=== PATIENT | male | born 1950 | race Hispanic/Latino ===

== ENCOUNTER 2022-02-09 20:33 | Inpatient (IN) | payer MEDICAID, OTHER ==
[~2022-02-09] VITALS: Ht 157.5 cm; Wt 73.4 kg
[~2022-02-09 20:33] MED LIST: AMLO5TAB4 PO; HYDR12.54 PO; LEVO500T90 PO
[2022-02-09] MEDS ORDERED: KETOROLAC 30MG VIAL (30MG/ML) IVP ONE (21:00)
[2022-02-09] MEDS ORDERED: ONDANSETRON 4MG INJ IVP ONE (21:00)
[2022-02-09] MEDS ORDERED: LISI10TA24 PO (21:01)
[2022-02-09] MEDS ORDERED: ENZA40TA PO (21:02)
[2022-02-09] MEDS ORDERED: SALM1CAP PO (21:03)
[2022-02-09 21:09] LABS: BASOPHILS % (AUTO) 0.6 % (0.0-5.0); EOSINOPHILS % (AUTO) 0.3 % (0.0-8.0); HEMATOCRIT 33.9 % (42-54); LYMPHOCYTES % (AUTO) 18.9 % (21.0-51.0); MEAN CORPUSCULAR HEMOGLOBIN 27.1 pg (27.0-33.0); MEAN CORPUSCULAR VOLUME 81.9 fL (79-99); MONOCYTES % (AUTO) 10.9 % (3.0-13.0); NEUTROPHILS % (AUTO) 68.9 % (40.0-77.0); PLATELET COUNT (AUTO) 149 K/uL (130-400); RED BLOOD CELL COUNT(AUTO) 4.14 MIL/uL (4.50-6.20); RED CELL DISTRIBUTION WIDTH 17.2 % (11.0-15.5); WHITE BLOOD COUNT (AUTO) 6.8 K/uL (4.8-10.8)
[2022-02-09 21:17] LABS: CREATININE 1.4 mg/dL (0.5-1.5); POTASSIUM 4.2 mmol/L (3.5-5.1)
[2022-02-09 21:21] LABS: ALBUMIN 3.7 g/dL (3.5-5.0); BILIRUBIN,TOTAL 0.6 mg/dL (0.2-1.0)
[2022-02-09 21:32] LABS: APPEARANCE,URINE Cloudy (CLEAR); BILIRUBIN,URINE Negative (NEGATIVE); COLOR,URINE Yellow (YELLOW); GLUCOSE, URINE (UA) Negative (NEGATIVE); KETONES,URINE Negative (NEGATIVE); LEUKOCYTE ESTERASE ,URINE Large (NEGATIVE); NITRATE,URINE Negative (NEGATIVE); OCCULT BLOOD,URINE Trace (NEGATIVE); PH,URINE 8.5 (5.0-8.0); PROTEIN,URINE POS 2+ mg/dL (NEGATIVE)
[2022-02-09 21:40] LABS: BACTERIA,URINE Few /HPF (None Seen)
[2022-02-09 21:41] LABS: SQUAMOUS EPITHELIAL CELL,UR Rare /HPF (0-2); TRIPLE PHOSPHATE CRYSTAL,UR Few /LPF (None Seen)
[2022-02-09] MEDS ORDERED: CEFTRIAXONE 1G VIAL IVP ONE (23:30)
[2022-02-09] MEDS ORDERED: ACETAMINOPHEN 500 MG TABLET PO ONE (23:30)
[2022-02-10] MEDS ORDERED: ONDANSETRON 4MG INJ IV PRN (00:30)
[2022-02-10] MEDS ORDERED: LACTULOSE 20 GM/30 ML UDCUP PO ONE (00:30)
[2022-02-10] MEDS ORDERED: MORPHINE 4 MG SYG IV PRN (00:30)
[2022-02-10] MEDS ORDERED: CEFTRIAXONE 1G VIAL ONE (00:36)
[2022-02-10] MEDS ORDERED: ACETAMINOPHEN 500 MG TABLET ONE (00:36)
[2022-02-10] MEDS: 0.9%NACL 1000ML 1,000 ML IV SCH ×2 (00:44→20:55)
[2022-02-10] MEDS: ZOSYN 3.375GM+NS 50ML 50 ML IV SCH ×3 (06:00→20:56)
[2022-02-10 07:11] LABS: BASOPHILS % (AUTO) 0.4 % (0.0-5.0); EOSINOPHILS % (AUTO) 0.9 % (0.0-8.0); HEMATOCRIT 30.3 % (42-54); LYMPHOCYTES % (AUTO) 30.3 % (21.0-51.0); MEAN CORPUSCULAR HEMOGLOBIN 26.9 pg (27.0-33.0); MEAN CORPUSCULAR VOLUME 81.5 fL (79-99); MONOCYTES % (AUTO) 8.6 % (3.0-13.0); NEUTROPHILS % (AUTO) 59.6 % (40.0-77.0); PLATELET COUNT (AUTO) 160 K/uL (130-400); RED BLOOD CELL COUNT(AUTO) 3.72 MIL/uL (4.50-6.20); RED CELL DISTRIBUTION WIDTH 17.2 % (11.0-15.5); WHITE BLOOD COUNT (AUTO) 4.6 K/uL (4.8-10.8)
[2022-02-10 07:22] LABS: INR 1.07 (0.85-1.15); PROTHROMBIN TIME 11.6 SEC (9.6-11.6)
[2022-02-10 07:23] LABS: PARTIAL THROMBOPLASTIN TIME 34.1 SEC (26.3-35.5)
[2022-02-10 07:26] LABS: CREATININE 1.6 mg/dL (0.5-1.5); MAGNESIUM 2.3 mg/dL (1.80-2.40); PHOSPHORUS 5.3 mg/dL (2.5-4.9); POTASSIUM 3.4 mmol/L (3.5-5.1)
[2022-02-10 09:00] VITALS: BP 153/77
[2022-02-10 11:05] VITALS: BP 137/81
[2022-02-10] MEDS: FAMOTIDINE 20MG VIAL IV SCH (12:22)
[2022-02-10 16:05] VITALS: BP 130/72
[2022-02-10 20:10] VITALS: BP 120/72
[2022-02-10] MEDS ORDERED: KCL 20 MEQ ERTAB PO ONE (21:25)
[2022-02-11] VITALS (13 sets, daily range): BP systolic 113–165; BP diastolic 66–86
[2022-02-11] MEDS: ZOSYN 3.375GM+NS 50ML 50 ML IV SCH ×3 (04:08→20:33)
[2022-02-11] MEDS: 0.9%NACL 1000ML 1,000 ML IV SCH ×2 (06:01→17:41)
[2022-02-11 06:16] LABS: BASOPHILS % (AUTO) 0.5 % (0.0-5.0); EOSINOPHILS % (AUTO) 0.8 % (0.0-8.0); HEMATOCRIT 27.5 % (42-54); LYMPHOCYTES % (AUTO) 18.2 % (21.0-51.0); MEAN CORPUSCULAR HEMOGLOBIN 26.9 pg (27.0-33.0); MEAN CORPUSCULAR HGB CONC 33.5 g/dL (32.0-36.0); MEAN CORPUSCULAR VOLUME 80.4 fL (79-99); NEUTROPHILS % (AUTO) 71.2 % (40.0-77.0); PLATELET COUNT (AUTO) 114 K/uL (130-400); RED BLOOD CELL COUNT(AUTO) 3.42 MIL/uL (4.50-6.20); RED CELL DISTRIBUTION WIDTH 16.8 % (11.0-15.5); WHITE BLOOD COUNT (AUTO) 6.3 K/uL (4.8-10.8)
[2022-02-11 06:43] LABS: ALBUMIN 2.9 g/dL (3.5-5.0); BILIRUBIN,TOTAL 1.2 mg/dL (0.2-1.0); CREATININE 1.7 mg/dL (0.5-1.5); MAGNESIUM 2.2 mg/dL (1.80-2.40); TOTAL PROTEIN, SERUM 6.9 g/dL (6.0-8.3)
[2022-02-11] MEDS ORDERED: LIDOCAINE HCL 1% 20 ML VIAL ONE (07:08)
[2022-02-11] MEDS ORDERED: IOHEXOL-350 50ML VIAL IV ONE (07:09)
[2022-02-11] MEDS ORDERED: MIDAZOLAM HCL 1 MG/ML 2ML VIAL ONE (07:44)
[2022-02-11] MEDS ORDERED: FENTANYL CITRATE PF 50 MCG/1 ML 2ML VIAL ONE (07:45)
[2022-02-11] MEDS: FAMOTIDINE 20MG VIAL IV SCH (10:29)
[2022-02-11] MEDS: HYDROCODONE/ACETAMINOPHEN 5/325 MG TAB PO PRN (15:08)
[2022-02-12 00:29] VITALS: BP 127/71
[2022-02-12] MEDS: 0.9%NACL 1000ML 1,000 ML IV SCH ×4 (01:57→23:45)
[2022-02-12] MEDS: HYDROCODONE/ACETAMINOPHEN 5/325 MG TAB PO PRN (02:50)
[2022-02-12 04:50] VITALS: BP 113/69
[2022-02-12] MEDS: ZOSYN 3.375GM+NS 50ML 50 ML IV SCH ×3 (05:03→21:27)
[2022-02-12 08:00] VITALS: BP 140/51
[2022-02-12] MEDS: FAMOTIDINE 20MG VIAL IV SCH (09:00)
[2022-02-12 11:49] LABS: BASOPHILS % (AUTO) 0.6 % (0.0-5.0); EOSINOPHILS % (AUTO) 2.1 % (0.0-8.0); HEMATOCRIT 26.5 % (42-54); LYMPHOCYTES % (AUTO) 19.2 % (21.0-51.0); MEAN CORPUSCULAR HEMOGLOBIN 27.8 pg (27.0-33.0); MEAN CORPUSCULAR HGB CONC 34.3 g/dL (32.0-36.0); MONOCYTES % (AUTO) 11.1 % (3.0-13.0); NEUTROPHILS % (AUTO) 66.8 % (40.0-77.0); PLATELET COUNT (AUTO) 145 K/uL (130-400); RED BLOOD CELL COUNT(AUTO) 3.27 MIL/uL (4.50-6.20); RED CELL DISTRIBUTION WIDTH 16.7 % (11.0-15.5); WHITE BLOOD COUNT (AUTO) 5.2 K/uL (4.8-10.8)
[2022-02-12 11:51] LABS: RETICULOCYTE % (AUTO) 1.88 % (0.42-2.23)
[2022-02-12 12:00] VITALS: BP 124/73
[2022-02-12 12:05] LABS: CREATININE 1.6 mg/dL (0.5-1.5); MAGNESIUM 2.2 mg/dL (1.80-2.40); PHOSPHORUS 3.8 mg/dL (2.5-4.9)
[2022-02-12 12:33] LABS: THYROID STIMULATING HORMONE 4.44 uIU/mL (0.36-3.74)
[2022-02-12 12:59] LABS: % IRON SATURATION 9.6 % (30-44)
[2022-02-12] MEDS ORDERED: MORPHINE 2 MG SYG IV PRN (14:00)
[2022-02-12] MEDS ORDERED: KETOROLAC 15MG/ML VIAL (15MG/ML) IV PRN (14:00)
[2022-02-12] MEDS: AMOXICILLIN 500 MG CAPSULE PO SCH ×2 (14:04→21:27)
[2022-02-12 16:00] VITALS: BP 128/74
[2022-02-12 20:00] VITALS: BP 144/77
[2022-02-13] VITALS: BP 145/80
[2022-02-13 04:00] VITALS: BP 133/74
[2022-02-13] MEDS: ZOSYN 3.375GM+NS 50ML 50 ML IV SCH ×3 (05:08→21:22)
[2022-02-13 08:00] VITALS: BP 140/81
[2022-02-13] MEDS: AMOXICILLIN 500 MG CAPSULE PO SCH ×3 (08:50→21:20)
[2022-02-13] MEDS: FAMOTIDINE 20MG VIAL IV SCH (08:50)
[2022-02-13 12:00] VITALS: BP 125/75
[2022-02-13 16:00] VITALS: BP 135/79
[2022-02-13 20:00] VITALS: BP 143/86
[2022-02-13] MEDS: 0.9%NACL 1000ML 1,000 ML IV SCH (21:25)
[2022-02-14] VITALS: BP 144/69
[2022-02-14 04:00] VITALS: BP 138/72
[2022-02-14] MEDS: ZOSYN 3.375GM+NS 50ML 50 ML IV SCH ×2 (05:25→13:07)
[2022-02-14] MEDS: 0.9%NACL 1000ML 1,000 ML IV SCH (06:26)
[2022-02-14 08:00] VITALS: BP 141/85
[2022-02-14] MEDS: AMOXICILLIN 500 MG CAPSULE PO SCH ×2 (08:21→13:03)
[2022-02-14] MEDS: FAMOTIDINE 20MG VIAL IV SCH (08:21)
[2022-02-14 12:00] VITALS: BP 133/76
[2022-02-14 16:00] VITALS: BP 145/73
[2022-02-14] MEDS ORDERED: AMOX500C2 PO (16:58)
[2022-02-14] MEDS ORDERED: IRON SUCROSE COMPLEX 300 MG in 0.9%NACL 50ML 50 ML IV SCH (17:00)
[2022-02-14 17:05] LABS: BASOPHILS % (AUTO) 0.7 % (0.0-5.0); LYMPHOCYTES % (AUTO) 25.6 % (21.0-51.0); MEAN CORPUSCULAR HEMOGLOBIN 27.5 pg (27.0-33.0); MEAN CORPUSCULAR HGB CONC 34.4 g/dL (32.0-36.0); MEAN CORPUSCULAR VOLUME 79.9 fL (79-99); MONOCYTES % (AUTO) 14.3 % (3.0-13.0); NEUTROPHILS % (AUTO) 55.7 % (40.0-77.0); PLATELET COUNT (AUTO) 157 K/uL (130-400); RED BLOOD CELL COUNT(AUTO) 3.38 MIL/uL (4.50-6.20); RED CELL DISTRIBUTION WIDTH 16.3 % (11.0-15.5); WHITE BLOOD COUNT (AUTO) 4.3 K/uL (4.8-10.8)
[2022-02-14 17:13] LABS: CREATININE 1.5 mg/dL (0.5-1.5); POTASSIUM 3.9 mmol/L (3.5-5.1)
[2022-02-14] MEDS ORDERED: COMPOUND IV MISC 1 EACH IVSOLN MISC PRN (17:30)
== END 2022-02-14 19:00 | disposition home or self-care (01) | DRG 690 ==
LOC: EDH 20:33 → EDHIP 20:34 → 3AH 02-10 08:59
PROVIDERS: ADMIT Internal Medicine; ATTEND Internal Medicine
PROC: 0T9030Z Drainage of Right Kidney with Drainage Device, Percutaneous Approach (ICD-10-PCS; principal; 2022-02-11)
DX: N13.6 Pyonephrosis (principal); E78.5 Hyperlipidemia, unspecified; D64.9 Anemia, unspecified; I12.9 Hypertensive chronic kidney disease with stage 1 through stage 4 chronic kidney disease, or unspecified chronic kidney disease; M18.9 Osteoarthritis of first carpometacarpal joint, unspecified; D69.6 Thrombocytopenia, unspecified; Z20.822 Contact with and (suspected) exposure to COVID-19; E11.22 Type 2 diabetes mellitus with diabetic chronic kidney disease; E78.00 Pure hypercholesterolemia, unspecified; N40.0 Benign prostatic hyperplasia without lower urinary tract symptoms; Z85.46 Personal history of malignant neoplasm of prostate; Z83.3 Family history of diabetes mellitus; Z82.49 Family history of ischemic heart disease and other diseases of the circulatory system; Z93.3 Colostomy status
CPT/HCPCS: 10030; 36415; 50432; 74176; 80048; 80053; 81001; 82607; 82728; 82746; 83540; 83550; 83605; 83735; 84100; 84145; 84443; 85025; 85045; 85610; 85730; 86850; 86900; 86901; 87040; 87077; 87088; 87186; 87635; 93005; 99156; C1729; C1894; G0378; J0696; J1644; J1756; J1885; J2250; J2405; J2543; J3010; J3490; J7030; Q9967

== ENCOUNTER 2022-03-22 09:16 | Emergency (ER) | payer MEDICAID, OTHER ==
[~2022-03-22] VITALS: Ht 160 cm; Wt 74.4 kg
[~2022-03-22 09:16] MED LIST changes: +AMOX500C2 PO; +ENZA40TA PO; -LEVO500T90 PO; +LISI10TA24 PO; +SALM1CAP PO
[2022-03-22 09:57] LABS: BASOPHILS % (AUTO) 0.5 % (0.0-5.0); EOSINOPHILS % (AUTO) 1.6 % (0.0-8.0); HEMATOCRIT 32.4 % (42-54); LYMPHOCYTES % (AUTO) 34.1 % (21.0-51.0); MEAN CORPUSCULAR HEMOGLOBIN 26.9 pg (27.0-33.0); MEAN CORPUSCULAR HGB CONC 33.6 g/dL (32.0-36.0); MONOCYTES % (AUTO) 9.5 % (3.0-13.0); PLATELET COUNT (AUTO) 147 K/uL (130-400); RED BLOOD CELL COUNT(AUTO) 4.05 MIL/uL (4.50-6.20); RED CELL DISTRIBUTION WIDTH 15.8 % (11.0-15.5); WHITE BLOOD COUNT (AUTO) 3.7 K/uL (4.8-10.8)
[2022-03-22 10:13] LABS: CREATININE 1.4 mg/dL (0.5-1.5); POTASSIUM 4.2 mmol/L (3.5-5.1)
[2022-03-22 10:17] LABS: ALBUMIN 3.6 g/dL (3.5-5.0); BILIRUBIN,TOTAL 0.2 mg/dL (0.2-1.0); TOTAL PROTEIN, SERUM 7.7 g/dL (6.0-8.3)
[2022-03-22 10:29] LABS: APPEARANCE,URINE Turbid (CLEAR); BILIRUBIN,URINE Negative (NEGATIVE); COLOR,URINE Yellow (YELLOW); GLUCOSE, URINE (UA) Negative (NEGATIVE); KETONES,URINE Negative (NEGATIVE); LEUKOCYTE ESTERASE ,URINE Large (NEGATIVE); NITRATE,URINE Positive (NEGATIVE); OCCULT BLOOD,URINE Moderate (NEGATIVE); PH,URINE 6.5 (5.0-8.0); PROTEIN,URINE POS 1+ mg/dL (NEGATIVE); UROBILINOGEN,URINE 0.2 mg/dL (0.2-1.0)
[2022-03-22 12:08] LABS: APPEARANCE,URINE CLOUDY (CLEAR); BILIRUBIN,URINE NEGATIVE (NEGATIVE); COLOR,URINE RED (YELLOW); GLUCOSE, URINE (UA) 100 mg/dL (NEGATIVE); KETONES,URINE NEGATIVE (NEGATIVE); LEUKOCYTE ESTERASE ,URINE LARGE (NEGATIVE); NITRATE,URINE NEGATIVE (NEGATIVE); OCCULT BLOOD,URINE LARGE (NEGATIVE); PROTEIN,URINE >=300 mg/dL (NEGATIVE); UROBILINOGEN,URINE 0.2 mg/dL (0.2-1.0)
[2022-03-22 12:16] LABS: BACTERIA,URINE Rare /HPF (None Seen); RBC,URINE >100 /HPF (0-1); SQUAMOUS EPITHELIAL CELL,UR Rare /HPF (0-2); WBC,URINE 51-100 /HPF (0-1)
[2022-03-22 12:18] LABS: BACTERIA,URINE Many /HPF (None Seen); RBC,URINE 0-1 /HPF (0-1); SQUAMOUS EPITHELIAL CELL,UR Rare /HPF (0-2)
[2022-03-22] MEDS ORDERED: CEFTRIAXONE 1G VIAL IVP ONE (15:00)
[2022-03-22] MEDS ORDERED: ACETAMINOPHEN WITH CODEINE 1 TAB TAB PO ONE (15:00)
[2022-03-22] MEDS ORDERED: CIPR-278 PO (15:06)
[2022-03-22] MEDS ORDERED: ACET-2079 PO (15:06)
[2022-03-22 15:41] VITALS: BP 135/78
== END 2022-03-22 15:40 | disposition home or self-care (01) ==
LOC: EDH 09:16
DX: N39.0 Urinary tract infection, site not specified (principal); C79.82 Secondary malignant neoplasm of genital organs; I10 Essential (primary) hypertension; Z79.899 Other long term (current) drug therapy; Z93.3 Colostomy status
CPT/HCPCS: 36415; 76770; 80053; 81001 ×2; 82550; 83690; 85025; 87077; 87088; 87186; 96374; 99284; J0696

== ENCOUNTER 2022-10-29 11:07 | Emergency (ER) | payer MEDICAID, OTHER ==
[~2022-10-29] VITALS: Ht 154.9 cm; Wt 77.1 kg
[~2022-10-29 11:07] MED LIST changes: +ACET-2079 PO; +CIPR-278 PO
[2022-10-29 11:12] VITALS: BP 141/95
[2022-10-29 11:48] LABS: BASOPHILS % (AUTO) 0.8 % (0.0-5.0); HEMATOCRIT 34.5 % (42-54); LYMPHOCYTES % (AUTO) 32.8 % (21.0-51.0); MEAN CORPUSCULAR HEMOGLOBIN 28.2 pg (27.0-33.0); MEAN CORPUSCULAR HGB CONC 35.7 g/dL (32.0-36.0); MEAN CORPUSCULAR VOLUME 79.1 fL (79-99); MONOCYTES % (AUTO) 9.5 % (3.0-13.0); NEUTROPHILS % (AUTO) 55.7 % (40.0-77.0); PLATELET COUNT (AUTO) 159 K/uL (130-400); RED BLOOD CELL COUNT(AUTO) 4.36 MIL/uL (4.50-6.20); WHITE BLOOD COUNT (AUTO) 4.9 K/uL (4.8-10.8)
[2022-10-29 12:21] LABS: CREATININE 1.4 mg/dL (0.5-1.5); POTASSIUM 3.7 mmol/L (3.5-5.1)
[2022-10-29 12:26] LABS: ALBUMIN 3.9 g/dL (3.5-5.0)
[2022-10-29 14:18] LABS: APPEARANCE,URINE CLEAR (CLEAR); BILIRUBIN,URINE NEGATIVE (NEGATIVE); COLOR,URINE COLORLESS (YELLOW); GLUCOSE, URINE (UA) NEGATIVE (NEGATIVE); KETONES,URINE NEGATIVE (NEGATIVE); LEUKOCYTE ESTERASE ,URINE 500 Leu/uL (NEGATIVE); NITRATE,URINE 2+ (NEGATIVE); OCCULT BLOOD,URINE NEGATIVE (NEGATIVE); PH,URINE 6.5 (5.0-8.0); PROTEIN,URINE NEGATIVE (NEGATIVE); UROBILINOGEN,URINE 0.2 mg/dL (0.2-1.0)
[2022-10-29 14:19] LABS: APPEARANCE,URINE TURBID (CLEAR); BILIRUBIN,URINE NEGATIVE (NEGATIVE); COLOR,URINE LIGHT-ORANGE (YELLOW); GLUCOSE, URINE (UA) NEGATIVE (NEGATIVE); KETONES,URINE NEGATIVE (NEGATIVE); LEUKOCYTE ESTERASE ,URINE 500 Leu/uL (NEGATIVE); NITRATE,URINE NEGATIVE (NEGATIVE); OCCULT BLOOD,URINE SMALL (NEGATIVE); PROTEIN,URINE 200 mg/dL (NEGATIVE); UROBILINOGEN,URINE 0.2 mg/dL (0.2-1.0)
[2022-10-29 14:34] LABS: BACTERIA,URINE FEW /HPF (None Seen); RBC,URINE 0-1 /HPF (0-1)
[2022-10-29 14:36] LABS: BACTERIA,URINE FEW /HPF (None Seen)
[2022-10-29] MEDS ORDERED: SULF1TAB42 PO (14:39)
== END 2022-10-29 15:38 | disposition home or self-care (01) ==
LOC: EDH 11:07
DX: N39.0 Urinary tract infection, site not specified (principal); Z93.6 Other artificial openings of urinary tract status; I10 Essential (primary) hypertension; Z79.2 Long term (current) use of antibiotics; Z79.899 Other long term (current) drug therapy
CPT/HCPCS: 36415; 74018; 80053; 81001; 83605; 85025; 87077; 87088; 87186

== ENCOUNTER 2023-12-21 08:47 | Emergency (ER) | payer MEDICAID ==
[~2023-12-21] VITALS: Ht 160 cm; Wt 82.6 kg
[~2023-12-21 08:47] MED LIST changes: +SULF1TAB42 PO
[2023-12-21] MEDS: ONDANSETRON 4MG INJ IVP ONE (09:14)
[2023-12-21] MEDS: 0.9%NACL 1000ML 1,000 ML IV ONE (09:14)
[2023-12-21] MEDS: MORPHINE 2 MG SYG IVP ONE (09:14)
[2023-12-21 09:36] LABS: BASOPHILS # (AUTO) 0.05 K/uL (0.00-0.20); BASOPHILS % (AUTO) 1.1 % (0.0-5.0); EOSINOPHILS # (AUTO) 0.09 K/uL (0.00-0.70); HEMATOCRIT 36.7 % (42-54); IMMATURE GRANULOCYTE ABSOLUTE 0.01 K/uL (0-1); LYMPHOCYTES # (AUTO) 1.5 K/uL (1.0-4.8); MEAN CORPUSCULAR HEMOGLOBIN 28.3 pg (27.0-33.0); MEAN CORPUSCULAR HGB CONC 34.3 g/dL (32.0-36.0); MEAN CORPUSCULAR VOLUME 82.3 fL (79-99); MONOCYTES # (AUTO) 0.5 K/uL (0.1-1.0); MONOCYTES % (AUTO) 11.1 % (3.0-13.0); NEUTROPHILS # (AUTO) 2.4 K/uL (1.8-7.7); NEUTROPHILS % (AUTO) 52.6 % (40.0-77.0); PLATELET COUNT (AUTO) 161 K/uL (130-400); RED BLOOD CELL COUNT(AUTO) 4.46 MIL/uL (4.50-6.20); RED CELL DISTRIBUTION WIDTH 13.6 % (11.0-15.5); WHITE BLOOD COUNT (AUTO) 4.5 K/uL (4.8-10.8)
[2023-12-21 09:37] LABS: CREATININE 1.7 mg/dL (0.5-1.5); POTASSIUM 3.9 mmol/L (3.5-5.1)
[2023-12-21 09:41] LABS: ALBUMIN 3.7 g/dL (3.5-5.0); BILIRUBIN,TOTAL 0.4 mg/dL (0.2-1.0); TOTAL PROTEIN, SERUM 7.7 g/dL (6.0-8.3)
[2023-12-21 10:10] LABS: APPEARANCE,URINE TURBID (CLEAR); BILIRUBIN,URINE NEGATIVE (NEGATIVE); COLOR,URINE LIGHT-ORANGE (YELLOW); GLUCOSE, URINE (UA) NEGATIVE (NEGATIVE); KETONES,URINE NEGATIVE (NEGATIVE); LEUKOCYTE ESTERASE ,URINE 500 Leu/uL (NEGATIVE); NITRATE,URINE 1+ (NEGATIVE); OCCULT BLOOD,URINE LARGE (NEGATIVE); PROTEIN,URINE 50 mg/dL (NEGATIVE); UROBILINOGEN,URINE 0.2 mg/dL (0.2-1.0)
[2023-12-21 10:25] LABS: ADD UA MICROSCOPIC YES
[2023-12-21 10:37] LABS: BACTERIA,URINE MANY /HPF (None Seen); RBC,URINE 51-100 /HPF (0-1); WBC CLUMP MANY /HPF (0-1); WBC,URINE TNTC /HPF (0-1)
[2023-12-21 11:32] VITALS: RESP 18
[2023-12-21] MEDS ORDERED: AMOX1TAB16 PO (12:20)
[2023-12-21 12:31] VITALS: BP 161/79; PULSE 161; O2SAT 98
== END 2023-12-21 12:47 | disposition home or self-care (01) ==
LOC: EDH 08:47
DX: N30.00 Acute cystitis without hematuria (principal); I12.9 Hypertensive chronic kidney disease with stage 1 through stage 4 chronic kidney disease, or unspecified chronic kidney disease; E11.22 Type 2 diabetes mellitus with diabetic chronic kidney disease; N18.9 Chronic kidney disease, unspecified; R10.9 Unspecified abdominal pain; C61 Malignant neoplasm of prostate; Z79.899 Other long term (current) drug therapy
CPT/HCPCS: 99285; 74176; 96374; 96375; 80053; 83690; 85025; 87077; 87088; 87186; 81001; 36415; J2270; J7030; J2405

== ENCOUNTER 2024-04-19 20:45 | Inpatient (IN) | payer MEDICAID, OTHER ==
[~2024-04-19] VITALS: Ht 172.7 cm; Wt 81.9 kg
[~2024-04-19 20:45] MED LIST changes: +AMOX1TAB16 PO
[2024-04-19 21:29] LABS: BASOPHILS # (AUTO) 0.04 K/uL (0.00-0.20); BASOPHILS % (AUTO) 0.5 % (0.0-5.0); EOSINOPHILS # (AUTO) 0.07 K/uL (0.00-0.70); EOSINOPHILS % (AUTO) 0.9 % (0.0-8.0); HEMATOCRIT 36.7 % (42-54); IMMATURE GRANULOCYTE ABSOLUTE 0.01 K/uL (0-1); LYMPHOCYTES # (AUTO) 1.9 K/uL (1.0-4.8); LYMPHOCYTES % (AUTO) 25.2 % (21.0-51.0); MEAN CORPUSCULAR HEMOGLOBIN 28.1 pg (27.0-33.0); MEAN CORPUSCULAR HGB CONC 36.5 g/dL (32.0-36.0); MEAN CORPUSCULAR VOLUME 76.9 fL (79-99); MONOCYTES # (AUTO) 0.7 K/uL (0.1-1.0); MONOCYTES % (AUTO) 8.9 % (3.0-13.0); NEUTROPHILS # (AUTO) 4.8 K/uL (1.8-7.7); NEUTROPHILS % (AUTO) 64.4 % (40.0-77.0); PLATELET COUNT (AUTO) 203 K/uL (130-400); RED BLOOD CELL COUNT(AUTO) 4.77 MIL/uL (4.50-6.20); RED CELL DISTRIBUTION WIDTH 13.2 % (11.0-15.5); WHITE BLOOD COUNT (AUTO) 7.5 K/uL (4.8-10.8)
[2024-04-19 21:40] LABS: CREATININE 1.6 mg/dL (0.5-1.3); POTASSIUM 3.3 mmol/L (3.5-5.1)
[2024-04-19 21:45] LABS: ALBUMIN 3.6 g/dL (3.5-5.0); BILIRUBIN,TOTAL 0.5 mg/dL (0.2-1.0); TOTAL PROTEIN, SERUM 8.1 g/dL (6.0-8.3)
[2024-04-20] MEDS ORDERED: 0.9% NACL 500ML IV.SOLN 500 ML IV ONE
[2024-04-20] MEDS: 0.9%NACL 1000ML 1,000 ML IV ONE (04:00)
[2024-04-20] MEDS ORDERED: LACTATED RINGERS IV ONE (04:00)
[2024-04-20] MEDS: TAMSULOSIN HCL 0.4 MG CAP.ER.24H PO ONE (04:01)
[2024-04-20] MEDS: KETOROLAC 15MG/ML VIAL (15MG/ML) IV ONE (04:01)
[2024-04-20] MEDS: POTASSIUM BICARB/CIT AC 25 MEQ TABLET.EFF PO ONE (04:01)
[2024-04-20 04:03] LABS: APPEARANCE,URINE CLOUDY (CLEAR); BILIRUBIN,URINE NEGATIVE (NEGATIVE); COLOR,URINE LIGHT-YELLOW (YELLOW); GLUCOSE, URINE (UA) NEGATIVE (NEGATIVE); KETONES,URINE NEGATIVE (NEGATIVE); LEUKOCYTE ESTERASE ,URINE 500 Leu/uL (NEGATIVE); NITRATE,URINE NEGATIVE (NEGATIVE); OCCULT BLOOD,URINE MODERATE (NEGATIVE); PH,URINE 5.5 (5.0-8.0); PROTEIN,URINE 30 mg/dL (NEGATIVE); UROBILINOGEN,URINE 0.2 mg/dL (0.2-1.0)
[2024-04-20 04:07] LABS: ADD UA MICROSCOPIC YES
[2024-04-20 04:18] LABS: BACTERIA,URINE RARE /HPF (None Seen); MUCUS,URINE RARE LPF (None Seen); SQUAMOUS EPITHELIAL CELL,UR RARE /HPF (0-2); WBC CLUMP FEW /HPF (0-1); WBC,URINE TNTC /HPF (0-1)
[2024-04-20] MEDS: ZOSYN 3.375GM +NS 50ML IV ONE (04:19)
[2024-04-20] MEDS ORDERED: ACETAMINOPHEN 325 MG TAB PO PRN ×2 (04:30)
[2024-04-20] MEDS ORDERED: POTASSIUM CHLORIDE 20MEQ/100ML 100 ML IV PRN (04:30)
[2024-04-20] MEDS ORDERED: MORPHINE 4 MG SYG IV PRN (04:30)
[2024-04-20] MEDS ORDERED: POTASSIUM CHLORIDE 10% ELIXIR 20 MEQ/15 ML UDCUP PO PRN (04:30)
[2024-04-20] MEDS ORDERED: ONDANSETRON 4MG INJ IV PRN (04:30)
[2024-04-20] MEDS ORDERED: KCL 20 MEQ ERTAB PO PRN (04:30)
[2024-04-20] MEDS: 0.9%NACL 1000ML 1,000 ML IV SCH (05:08)
[2024-04-20] MEDS: CEFTRIAXONE 1G VIAL IV SCH (05:10)
[2024-04-20 07:50] LABS: BASOPHILS # (AUTO) 0.03 K/uL (0.00-0.20); BASOPHILS % (AUTO) 0.6 % (0.0-5.0); EOSINOPHILS # (AUTO) 0.04 K/uL (0.00-0.70); EOSINOPHILS % (AUTO) 0.8 % (0.0-8.0); HEMATOCRIT 34.8 % (42-54); IMMATURE GRANULOCYTE ABSOLUTE 0.01 K/uL (0-1); LYMPHOCYTES # (AUTO) 1.6 K/uL (1.0-4.8); LYMPHOCYTES % (AUTO) 31.4 % (21.0-51.0); MEAN CORPUSCULAR HEMOGLOBIN 27.8 pg (27.0-33.0); MEAN CORPUSCULAR HGB CONC 35.3 g/dL (32.0-36.0); MEAN CORPUSCULAR VOLUME 78.7 fL (79-99); MONOCYTES # (AUTO) 0.6 K/uL (0.1-1.0); MONOCYTES % (AUTO) 12.2 % (3.0-13.0); NEUTROPHILS # (AUTO) 2.7 K/uL (1.8-7.7); NEUTROPHILS % (AUTO) 54.8 % (40.0-77.0); PLATELET COUNT (AUTO) 153 K/uL (130-400); RED BLOOD CELL COUNT(AUTO) 4.42 MIL/uL (4.50-6.20); RED CELL DISTRIBUTION WIDTH 13.4 % (11.0-15.5)
[2024-04-20 08:00] VITALS: BP 115/72; PULSE 62; RESP 18
[2024-04-20 08:14] LABS: INR 1.01 (0.85-1.15); PROTHROMBIN TIME 10.9 SEC (9.6-11.6)
[2024-04-20 08:15] LABS: PARTIAL THROMBOPLASTIN TIME 31.2 SEC (26.3-35.5)
[2024-04-20 08:25] LABS: CREATININE 1.7 mg/dL (0.5-1.3); MAGNESIUM 2.2 mg/dL (1.80-2.40); PHOSPHORUS 4.6 mg/dL (2.5-4.9); POTASSIUM 3.8 mmol/L (3.5-5.1)
[2024-04-20] MEDS: TAMSULOSIN HCL 0.4 MG CAP.ER.24H PO SCH (09:00)
[2024-04-20] MEDS: PANTOPRAZOLE 40 MG/VIAL IVP SCH (09:35)
[2024-04-20 12:00] VITALS: BP 125/76; PULSE 60; RESP 18
[2024-04-20 14:01] VITALS: O2SAT 99
[2024-04-20 16:00] VITALS: BP 139/86; PULSE 64; RESP 18
[2024-04-21] VITALS (7 sets, daily range): BP systolic 113–143; BP diastolic 76–94; PULSE 66–78; RESP 16–18; O2SAT 96–99
[2024-04-21 03:39] LABS: BASOPHILS # (AUTO) 0.04 K/uL (0.00-0.20); BASOPHILS % (AUTO) 0.8 % (0.0-5.0); EOSINOPHILS # (AUTO) 0.04 K/uL (0.00-0.70); EOSINOPHILS % (AUTO) 0.8 % (0.0-8.0); HEMATOCRIT 32.1 % (42-54); IMMATURE GRANULOCYTE ABSOLUTE 0.01 K/uL (0-1); LYMPHOCYTES # (AUTO) 1.3 K/uL (1.0-4.8); LYMPHOCYTES % (AUTO) 26.4 % (21.0-51.0); MEAN CORPUSCULAR HEMOGLOBIN 27.7 pg (27.0-33.0); MEAN CORPUSCULAR HGB CONC 35.5 g/dL (32.0-36.0); MEAN CORPUSCULAR VOLUME 77.9 fL (79-99); MONOCYTES # (AUTO) 0.5 K/uL (0.1-1.0); MONOCYTES % (AUTO) 9.7 % (3.0-13.0); NEUTROPHILS # (AUTO) 3.2 K/uL (1.8-7.7); NEUTROPHILS % (AUTO) 62.1 % (40.0-77.0); PLATELET COUNT (AUTO) 151 K/uL (130-400); RED BLOOD CELL COUNT(AUTO) 4.12 MIL/uL (4.50-6.20); RED CELL DISTRIBUTION WIDTH 13.2 % (11.0-15.5); WHITE BLOOD COUNT (AUTO) 5.1 K/uL (4.8-10.8)
[2024-04-21 03:51] LABS: CREATININE 1.5 mg/dL (0.5-1.3); POTASSIUM 4.1 mmol/L (3.5-5.1)
[2024-04-21] MEDS: HYDROCODONE/ACETAMINOPHEN 5/325 MG TAB PO PRN (23:15)
[2024-04-22] VITALS: BP 132/82; PULSE 60; RESP 17
[2024-04-22 04:00] VITALS: BP 138/88; PULSE 59; RESP 18
[2024-04-22 06:00] LABS: HEMATOCRIT 32.2 % (42-54); MEAN CORPUSCULAR HEMOGLOBIN 27.9 pg (27.0-33.0); MEAN CORPUSCULAR HGB CONC 35.1 g/dL (32.0-36.0); MEAN CORPUSCULAR VOLUME 79.5 fL (79-99); RED BLOOD CELL COUNT(AUTO) 4.05 MIL/uL (4.50-6.20); RED CELL DISTRIBUTION WIDTH 13.3 % (11.0-15.5); WHITE BLOOD COUNT (AUTO) 4.6 K/uL (4.8-10.8)
[2024-04-22 06:18] LABS: % IRON SATURATION 17.1 % (30-44)
[2024-04-22 06:50] LABS: CREATININE 1.4 mg/dL (0.5-1.3); POTASSIUM 4.2 mmol/L (3.5-5.1)
[2024-04-22 08:00] VITALS: BP 155/83; PULSE 63; RESP 16
[2024-04-22] MEDS ORDERED: MORPHINE 2 MG SYG IV PRN (08:00)
[2024-04-22 08:30] VITALS: O2SAT 99
[2024-04-22] MEDS: ENOXAPARIN SODIUM 40 MG/0.4 ML SYRINGE SQ SCH (08:34)
[2024-04-22 12:00] VITALS: BP 139/82; PULSE 71; RESP 18
[2024-04-22] MEDS ORDERED: AMOX1TAB16 PO (12:37)
== END 2024-04-22 14:40 | disposition home or self-care (01) | DRG 690 ==
LOC: EDH 20:45 → EDHIP 04-20 04:20 → 3AH 04-20 22:05
PROVIDERS: ADMIT Internal Medicine; ATTEND Internal Medicine
DX: N13.6 Pyonephrosis (principal); C79.51 Secondary malignant neoplasm of bone; N17.9 Acute kidney failure, unspecified; N18.31 Chronic kidney disease, stage 3a; E87.6 Hypokalemia; E11.22 Type 2 diabetes mellitus with diabetic chronic kidney disease; I12.9 Hypertensive chronic kidney disease with stage 1 through stage 4 chronic kidney disease, or unspecified chronic kidney disease; B96.1 Klebsiella pneumoniae [K. pneumoniae] as the cause of diseases classified elsewhere; I25.10 Atherosclerotic heart disease of native coronary artery without angina pectoris; E78.5 Hyperlipidemia, unspecified; D69.6 Thrombocytopenia, unspecified; D64.9 Anemia, unspecified; K57.30 Diverticulosis of large intestine without perforation or abscess without bleeding; N40.1 Benign prostatic hyperplasia with lower urinary tract symptoms; Z75.3 Unavailability and inaccessibility of health-care facilities; Z85.46 Personal history of malignant neoplasm of prostate; Z93.3 Colostomy status; Z86.73 Personal history of transient ischemic attack (TIA), and cerebral infarction without residual deficits; Z59.7 Insufficient social insurance and welfare support
CPT/HCPCS: 36415; 71045; 74176; 80048; 80053; 81001; 82607; 82746; 83540; 83550; 83605; 83735; 84100; 84153; 84484; 85025; 85027; 85610; 85730; 86850; 86900; 86901; 87040; 87086; 87186; 93005; 96361; 96374; G0378; J0696; J1650; J1885; J2470; J2543; J7030

== ENCOUNTER 2024-06-15 18:05 | Observation (INO) | payer OTHER ==
[~2024-06-15] VITALS: Ht 170.2 cm; Wt 80.7 kg
[~2024-06-15 18:05] MED LIST changes: -ACET-2079 PO; +AMLO-257 PO; -AMLO5TAB4 PO; -AMOX500C2 PO; -CIPR-278 PO; +HYDR-4060 PO; -SALM1CAP PO; -SULF1TAB42 PO
[2024-06-15 21:45] LABS: BASOPHILS # (AUTO) 0.06 K/uL (0.00-0.20); BASOPHILS % (AUTO) 0.8 % (0.0-5.0); EOSINOPHILS # (AUTO) 0.06 K/uL (0.00-0.70); EOSINOPHILS % (AUTO) 0.8 % (0.0-8.0); IMMATURE GRANULOCYTE ABSOLUTE 0.02 K/uL (0-1); LYMPHOCYTES % (AUTO) 26.3 % (21.0-51.0); MEAN CORPUSCULAR HEMOGLOBIN 26.5 pg (27.0-33.0); MEAN CORPUSCULAR HGB CONC 34.1 g/dL (32.0-36.0); MEAN CORPUSCULAR VOLUME 77.9 fL (79-99); MONOCYTES # (AUTO) 0.6 K/uL (0.1-1.0); MONOCYTES % (AUTO) 8.3 % (3.0-13.0); NEUTROPHILS # (AUTO) 4.9 K/uL (1.8-7.7); NEUTROPHILS % (AUTO) 63.5 % (40.0-77.0); PLATELET COUNT (AUTO) 264 K/uL (130-400); RED BLOOD CELL COUNT(AUTO) 4.75 MIL/uL (4.50-6.20); RED CELL DISTRIBUTION WIDTH 13.8 % (11.0-15.5); WHITE BLOOD COUNT (AUTO) 7.7 K/uL (4.8-10.8)
[2024-06-15 21:54] LABS: CREATININE 1.4 mg/dL (0.5-1.3); POTASSIUM 3.6 mmol/L (3.5-5.1)
[2024-06-15 21:58] LABS: APPEARANCE,URINE CLOUDY (CLEAR); BILIRUBIN,URINE NEGATIVE (NEGATIVE); COLOR,URINE LIGHT-ORANGE (YELLOW); GLUCOSE, URINE (UA) NEGATIVE (NEGATIVE); KETONES,URINE 5 mg/dL (NEGATIVE); LEUKOCYTE ESTERASE ,URINE 500 Leu/uL (NEGATIVE); NITRATE,URINE NEGATIVE (NEGATIVE); OCCULT BLOOD,URINE LARGE (NEGATIVE); PH,URINE 6.5 (5.0-8.0); PROTEIN,URINE 50 mg/dL (NEGATIVE)
[2024-06-15 22:00] LABS: ADD UA MICROSCOPIC YES
[2024-06-15 22:03] LABS: MUCUS,URINE RARE LPF (None Seen); NON-SQUAMOUS EPITHELIAL CELL 1 /HPF (0-2); RBC,URINE TNTC /HPF (0-1); SQUAMOUS EPITHELIAL CELL,UR RARE /HPF (0-2); UNCLASSIFIED CRYSTAL 5 /HPF (None Seen); WBC CLUMP MANY /HPF (0-1); WBC,URINE TNTC /HPF (0-1); YEAST,URINE BUDDING RARE /HPF (None Seen)
[2024-06-16] MEDS ORDERED: acetaMINOPHEN 325 MG TAB PO PRN
[2024-06-16] MEDS ORDERED: ONDANSETRON 4MG INJ IV PRN
[2024-06-16] MEDS: 0.9%NACL 1000ML 1,000 ML IV SCH (00:28)
[2024-06-16] MEDS: ZOSYN 3.375GM +NS 50ML IVPB ONE (00:28)
[2024-06-16] MEDS ORDERED: KCL 20 MEQ ERTAB PO PRN (03:00)
[2024-06-16] MEDS ORDERED: POTASSIUM CHLORIDE 10% ELIXIR 20 MEQ/15 ML UDCUP PO PRN (03:00)
[2024-06-16] MEDS ORDERED: POTASSIUM CHLORIDE 20MEQ/100ML 100 ML IV PRN (03:00)
[2024-06-16] MEDS ORDERED: MAGNESIUM 2GM PREMIX 50ML 50 ML IV PRN (03:00)
[2024-06-16 03:05] VITALS: BP 144/79; PULSE 69; RESP 20; TEMP 97.8
[2024-06-16 06:47] LABS: BASOPHILS # (AUTO) 0.04 K/uL (0.00-0.20); BASOPHILS % (AUTO) 0.6 % (0.0-5.0); EOSINOPHILS # (AUTO) 0.06 K/uL (0.00-0.70); HEMATOCRIT 33.2 % (42-54); IMMATURE GRANULOCYTE ABSOLUTE 0.02 K/uL (0-1); LYMPHOCYTES # (AUTO) 1.4 K/uL (1.0-4.8); LYMPHOCYTES % (AUTO) 21.9 % (21.0-51.0); MEAN CORPUSCULAR HEMOGLOBIN 26.9 pg (27.0-33.0); MEAN CORPUSCULAR HGB CONC 33.7 g/dL (32.0-36.0); MEAN CORPUSCULAR VOLUME 79.8 fL (79-99); MONOCYTES # (AUTO) 0.6 K/uL (0.1-1.0); MONOCYTES % (AUTO) 10.2 % (3.0-13.0); NEUTROPHILS # (AUTO) 4.1 K/uL (1.8-7.7); PLATELET COUNT (AUTO) 203 K/uL (130-400); RED BLOOD CELL COUNT(AUTO) 4.16 MIL/uL (4.50-6.20); RED CELL DISTRIBUTION WIDTH 13.7 % (11.0-15.5); WHITE BLOOD COUNT (AUTO) 6.2 K/uL (4.8-10.8)
[2024-06-16 08:00] VITALS: BP 144/89; PULSE 69; RESP 18; TEMP 98.2; O2SAT 99
[2024-06-16 08:44] LABS: BILIRUBIN,TOTAL 0.7 mg/dL (0.2-1.0); CREATININE 1.3 mg/dL (0.5-1.3); MAGNESIUM 2.3 mg/dL (1.80-2.40); POTASSIUM 3.5 mmol/L (3.5-5.1); TOTAL PROTEIN, SERUM 7.4 g/dL (6.0-8.3)
[2024-06-16] MEDS: FAMOTIDINE 20MG TAB PO SCH (09:28)
[2024-06-16] MEDS: ZOSYN 3.375GM+NS 50ML 50 ML IV SCH (09:28)
[2024-06-16] MEDS: acetaMINOPHEN 325 MG TAB PO PRN (09:29)
[2024-06-16 11:26] VITALS: BP 157/98; PULSE 73; RESP 18; TEMP 99
[2024-06-16] MEDS ORDERED: IOHEXOL 350 MG/ML 100ML INFUS..BTL IV ONE (13:23)
[2024-06-16 15:56] VITALS: BP 154/97; PULSE 76; RESP 18; TEMP 98
[2024-06-16] MEDS: ENZALUTAMIDE 160 MG PO SCH (19:47)
[2024-06-16] MEDS: LISINOPRIL 10 MG TABLET PO SCH (19:47)
[2024-06-16] MEDS: HYDROcodone/APAP 5/325 1 TAB TABLET PO PRN (19:54)
[2024-06-16 20:00] VITALS: BP 148/96; PULSE 76; RESP 18; TEMP 98.2; O2SAT 97
[2024-06-17] VITALS: BP 124/82; PULSE 72; RESP 18; TEMP 98.4
[2024-06-17 04:00] VITALS: BP 129/80; PULSE 74; RESP 17; TEMP 98.2
[2024-06-17 05:30] LABS: BASOPHILS # (AUTO) 0.03 K/uL (0.00-0.20); BASOPHILS % (AUTO) 0.5 % (0.0-5.0); EOSINOPHILS # (AUTO) 0.06 K/uL (0.00-0.70); HEMATOCRIT 31.7 % (42-54); IMMATURE GRANULOCYTE ABSOLUTE 0.01 K/uL (0-1); LYMPHOCYTES # (AUTO) 1.2 K/uL (1.0-4.8); LYMPHOCYTES % (AUTO) 21.6 % (21.0-51.0); MEAN CORPUSCULAR HEMOGLOBIN 26.5 pg (27.0-33.0); MEAN CORPUSCULAR HGB CONC 33.1 g/dL (32.0-36.0); MEAN CORPUSCULAR VOLUME 80.1 fL (79-99); MONOCYTES # (AUTO) 0.6 K/uL (0.1-1.0); MONOCYTES % (AUTO) 10.1 % (3.0-13.0); NEUTROPHILS # (AUTO) 3.8 K/uL (1.8-7.7); NEUTROPHILS % (AUTO) 66.6 % (40.0-77.0); PLATELET COUNT (AUTO) 221 K/uL (130-400); RED BLOOD CELL COUNT(AUTO) 3.96 MIL/uL (4.50-6.20); RED CELL DISTRIBUTION WIDTH 13.6 % (11.0-15.5); WHITE BLOOD COUNT (AUTO) 5.8 K/uL (4.8-10.8)
[2024-06-17 06:12] LABS: ALBUMIN 2.9 g/dL (3.5-5.0); BILIRUBIN,TOTAL 0.6 mg/dL (0.2-1.0); CREATININE 1.3 mg/dL (0.5-1.3); MAGNESIUM 2.3 mg/dL (1.80-2.40); POTASSIUM 3.8 mmol/L (3.5-5.1); TOTAL PROTEIN, SERUM 7.3 g/dL (6.0-8.3)
[2024-06-17 08:00] VITALS: BP 146/89; PULSE 70; RESP 18; TEMP 98.2
[2024-06-17 08:30] VITALS: O2SAT 96
[2024-06-17] MEDS: hydroCHLOROthiazide 25 MG TABLET PO SCH (08:44)
[2024-06-17] MEDS: amLODIPine 5 MG TAB PO SCH (08:44)
[2024-06-17] MEDS ORDERED: FAMO20TA8 PO (10:50)
[2024-06-17] MEDS ORDERED: AMOX1TAB16 PO (10:50)
[2024-06-17 12:00] VITALS: BP 150/81; PULSE 76; RESP 20; TEMP 97
[2024-06-17 16:00] VITALS: BP 147/92; PULSE 85; RESP 20; TEMP 98.3
== END 2024-06-17 18:18 | disposition home or self-care (01) ==
LOC: EDH 18:05 → EDHIP 18:06 → 3CH 06-16 03:05
PROVIDERS: ADMIT Hospitalist; ATTEND Hospitalist
DX: N30.00 Acute cystitis without hematuria (principal); I12.9 Hypertensive chronic kidney disease with stage 1 through stage 4 chronic kidney disease, or unspecified chronic kidney disease; N18.30 Chronic kidney disease, stage 3 unspecified; C79.51 Secondary malignant neoplasm of bone; C61 Malignant neoplasm of prostate; E87.1 Hypo-osmolality and hyponatremia; E27.49 Other adrenocortical insufficiency; E78.5 Hyperlipidemia, unspecified; D63.1 Anemia in chronic kidney disease; R33.9 Retention of urine, unspecified; N13.6 Pyonephrosis; Z79.899 Other long term (current) drug therapy; Z85.46 Personal history of malignant neoplasm of prostate; Z93.3 Colostomy status; Z86.73 Personal history of transient ischemic attack (TIA), and cerebral infarction without residual deficits
CPT/HCPCS: 99284; 80048; 85025 ×3; 87086 ×2; 87186; 81001; 36415 ×3; 74176; 96361 ×2; 96365; 96366 ×2; 83735 ×2; 80053 ×2; 74178; 96376; 84153; G0378 ×42; J7030; J2543 ×5; Q9967

== ENCOUNTER 2024-10-07 11:51 | Emergency (ER) | payer OTHER ==
[~2024-10-07 11:51] MED LIST changes: +FAMO20TA8 PO
--- NOTE | 2024-10-07 12:06 | ERN ---
ED Note History of Present Illness Stated Complaint: WEAKNESS Chief Complaint: Weakness Time Seen by MD: 12:00 Dictation: PATIENT IS A 74-YEAR-OLD MALE COMING IN TODAY WITH COMPLAINING OF GENERALIZED BODY WEAKNESS AND HEMATURIA HE HAS HAD FOR SEVERAL DAYS. NO FEVER NO CHILLS NO NAUSEA VOMITING. HE DOES HAVE A YUSUF CATHETER IN PLACE PATIENT HAS A HISTORY OF ANEMIA AND HAS BEEN RECEIVING TRANSFUSIONS AT [facility] HOWEVER CAME HERE TODAY BECAUSE THEY WERE TOO FULL. SEES Allergies: Coded Allergies: No Known Drug Allergies (Unverified Allergy, Unknown, 11/26/21) Home Meds Active Scripts Amoxicillin/Potassium Clav (Amox Tr-K Clv 875-125 mg Tab) 875 Mg-125 Mg Tablet, 1 EACH PO BID for 7 Days, #14 TAB 0 Refills Prov:ANIA MCKEE [employer]GE SALES ASSOCIATE 10/07/24 Amoxicillin/Potassium Clav (Amox Tr-K Clv 875-125 mg Tab) 875 Mg-125 Mg Tablet, 1 EACH PO BID, #10 TAB Prov:MATT SCOTT WELDER TACK 06/17/24 Famotidine (Famotidine) 20 Mg Tablet, 20 MG PO BID, #60 TAB Prov:MATT SCOTT WELDER TACK 06/17/24 Reported Medications Lisinopril (Lisinopril) 10 Mg Tablet, 10 MG PO HS, TAB 05/06/24 Hydrochlorothiazide (Hydrochlorothiazide) 12.5 Mg Tablet, 12.5 MG PO DAILY, TAB 05/06/24 Amlodipine Besylate (Amlodipine Besylate) 5 Mg Tablet, 5 MG PO DAILY, TAB 05/06/24 Enzalutamide (Xtandi) 40 Mg Tablet, 160 MG PO DAILY, TAB 05/06/24 Hydrocodone/Acetaminophen (Hydrocodon-Acetaminophen 5-325) 5 Mg-325 Mg Tablet, 1 TAB PO Q4HPRN PRN for pain 05/03/24 Past Medical History Past Medical History: High Cholesterol, Hypertension, Prostatitis, Renal Disese, Other Additional Past Medical Hx: PROSTATE CANCER, RIGHT KIDNEY DISEASE Surgical History: Other Surgical History Other: COLOSTOMY Social History: Negative RN Note Reviewed/Agreed w/PFSH: Yes Review of System Dictation CONSTITUTIONAL: NEGATIVE EXCEPT FOR HPI GENERALIZED BODY WEAKNESS HEAD/FACE: NEGATIVE EXCEPT FOR HPI EENT: NEGATIVE EXCEPT FOR HPI RESPIRATORY: NEGATIVE EXCEPT FOR HPI GASTROINTESTINAL/ABDOMINAL: NEGATIVE EXCEPT FOR HPI GENITOURINARY: NEGATIVE EXCEPT FOR HPI YUSUF CATHETER WITH HEMATURIA MUSCULOSKELETAL: NEGATIVE EXCEPT FOR HPI INTEGUMENTARY: NEGATIVE EXCEPT FOR HPI NEUROLOGICAL/PSYCH: NEGATIVE EXCEPT FOR HPI HEMATOLOGIC/LYMPHATIC: NEGATIVE EXCEPT FOR HPI ALL SYSTEMS NEGATIVE, EXCEPT NOTED ABOVE. 13 POINT REVIEW OF SYSTEMS ASSESSED AND ALL NEGATIVE EXCEPT FOR ABOVE. Initial Vital Sign VS Vital Signs Date Time Temp Pulse Resp B/P (MAP) Pulse Ox O2 Delivery O2 Flow Rate FiO2 10/07/24 11:59 99.0 119 16 164/81 99 Room Air 0 10/07/24 12:05 21 Physical Exam Dictation VITAL SIGNS REVIEWED GENERAL APPEARANCE: ALERT, ORIENTED X 3, PATIENT APPEARS VERY WEAK AND DEBILITATED EYES: PERRL, PINK CONJUNCTIVAS, EYELID NO TRAUMA, ANTERIOR CHAMBER WITH ARCUS SENILIS. EARS: PINNAS INTACT AND NO SIGNS OF TRAUMA OR ERYTHEMA EAR CANALS CLEAR AND NO DISCHARGE TM NO ERYTHEMA NOSE: NO DISCHARGE, NO BLEEDING. OROPHARYNX: MOUTH NORMAL, TONGUE PINK, PHARYNX CLEAR,NO ERYTHEMA, TONSILS NO EXUDATES, NO ABSCESSES NOTED, MUCOUS MEMBRANE MOIST NECK: SUPPLE, NON-TENDER, NO THYROMEGALY, NO MASSES, NO JVD, NO BRUITS BREAST:DEFERRED CHEST:NO TENDERNESS, NO CREPITUS, NO PARADOXICAL MOVEMENT, NO RETRACTIONS LUNGS:CLEAR, WELL-VENTILATED, SYMMETRIC, NO RALES, NO WHEEZING, NO RHONCHI, NO STRIDOR, GOOD BREATH SOUNDS BILATERALLY HEART: REGULAR RATE, REGULAR RHYTHM, NO MURMUR, NO GALLOPS VASCULAR: NO PERIPHERAL EDEMA, ABDOMEN: SOFT, POSITIVE BOWEL SOUNDS, NONDISTENDED, NO GUARDING, NONTENDER, NO REBOUND, NO MASSES NO HEPATOMEGALY, NO SPLENOMEGALY, NO PEREZ'S SIGN, NO HERNIAS. RECTAL: DEFERRED GENITAL: DEFERRED YUSUF CATHETER IN PLACE WITH GROSSLY HEMATURIA URINE NOTED IN BAG. NEUROLOGICAL: NORMAL SPEECH, MOTOR FUNCTION INTACT, SENSORY FUNCTION INTACT GB WM ALL EXTREMITIES MUSCULOSKELETAL: NECK NONTENDER, FULL RANGE OF MOTION, BACK NONTENDER, FULL RANGE OF MOTION, EXTREMITIES: NONTENDER, FULL RANGE OF MOTION SKIN: COLOR PINK, DRY, NO TURGOR, NO RASH, NO LACERATIONS, NO ABRASIONS, NO CONTUSIONS. LYMPHATIC: DEFERRED Results (Laboratory/Radiology) Laboratory/Radiology Laboratory Tests Test 10/07/24 12:32 10/07/24 13:48 10/07/24 15:23 White Blood Count 8.3 K/uL (4.8-10.8) Red Blood Count 3.16 MIL/uL (4.50-6.20) L Hemoglobin 7.8 g/dL (14.0-18.0) L Hematocrit 24.9 % (42-54) L Mean Corpuscular Volume 78.8 fL (79-99) L Mean Corpuscular Hemoglobin 24.7 pg (27.0-33.0) L Mean Corpuscular Hemoglobin Concent 31.3 g/dL (32.0-36.0) L Red Cell Distribution Width 18.2 % (11.0-15.5) H Platelet Count 275 K/uL (130-400) Mean Platelet Volume 8.5 fL (7.5-10.5) Immature Granulocyte % (Auto) 1.5 % (0-1) H Neutrophils (%) (Auto) 73.5 % (40.0-77.0) Lymphocytes (%) (Auto) 12.6 % (21.0-51.0) L Monocytes (%) (Auto) 11.9 % (3.0-13.0) Eosinophils (%) (Auto) 0.1 % (0.0-8.0) Basophils (%) (Auto) 0.4 % (0.0-5.0) Neutrophils # (Auto) 6.1 K/uL (1.8-7.7) Lymphocytes # (Auto) 1.0 K/uL (1.0-4.8) Monocytes # (Auto) 1.0 K/uL (0.1-1.0) Eosinophils # (Auto) 0.01 K/uL (0.00-0.70) Basophils # (Auto) 0.03 K/uL (0.00-0.20) Absolute Immature Granulocyte (auto 0.12 K/uL (0-1) Nucleated Red Blood Cells 0.2 % (0.0-0.19) H Red Blood Cell Morphology See comments Sodium Level 125 mmol/L (136-145) L Potassium Level 4.4 mmol/L (3.5-5.1) Chloride Level 94 mmol/L (101-111) L Carbon Dioxide Level 18 mmol/L (21-32) L Blood Urea Nitrogen 20 mg/dL (7-18) H Creatinine 1.2 mg/dL (0.5-1.3) Glomerular Filtration Rate Calc 63 mL/min (>90) Random Glucose 122 mg/dL (70-105) H Total Calcium 8.5 mg/dL (8.5-10.1) Troponin I High Sensitivity 5 ng/L (4-75) Urine Color LIGHT-ORANGE (YELLOW) Urine Appearance CLOUDY (CLEAR) H Urine pH 6.0 (5.0-8.0) Urine Specific Dawn 1.008 (1.001-1.031) Urine Protein 70 mg/dL (NEGATIVE) H Urine Glucose (UA) NEGATIVE mg/dL (NEGATIVE) Urine Ketones NEGATIVE mg/dL (NEGATIVE) Urine Occult Blood LARGE (NEGATIVE) H Urine Nitrate 1+ (NEGATIVE) H Urine Bilirubin NEGATIVE mg/dL (NEGATIVE) Urine Urobilinogen 0.2 mg/dL (0.2-1.0) Urine Leukocyte Esterase 500 Willam/uL (NEGATIVE) H Urine RBC TNTC /HPF (0-1) H Urine WBC TNTC /HPF (0-1) H Urine Squamous Epithelial Cells RARE /HPF (0-2) Urine Bacteria RARE /HPF (None Seen) Lactic Acid Level 1.4 mmol/L (0.8-2.5) Labs Reviewed?: Yes EKG Comment: EKG SINUS TACHYCARDIA/HEART RATE 109/AXIS NORMAL NO ACUTE CHANGES ED Course ED Course Orders Procedure Category Date Status Time Cbc With Differential LAB 10/07/24 Complete 12:01 Troponin I High LAB 10/07/24 Complete Sensitivity 12:01 12 Lead Ekg Tracing- EKG 10/07/24 Complete Technical 12:01 0.9%Nacl 1000ml (Ns PHA 10/07/24 Complete 1000ml) 12:30 Chest 1vw RAD 10/07/24 Resulted 12:01 Basic Metabolic Panel LAB 10/07/24 Complete 12:01 Urinalysis Profile LAB 10/07/24 Complete 12:01 Culture Urine RAHUL 10/07/24 Complete 14:03 Blood Cult RAHUL 10/07/24 In Process 14:56 Lactic Acid LAB 10/07/24 Complete 14:56 Ceftriaxone 2gm Vial PHA 10/07/24 Complete (Rocephin 2gm Inj) 16:00 Current Medications Medications (Trade) Dose Ordered Sig/Devan Route PRN Reason Start Time Stop Time Status Last Admin Dose Admin Ceftriaxone Sodium (Rocephin 2gm Inj) 2 gm ONCE ONCE IVPB 10/07/24 16:00 10/07/24 16:01 DC 10/07/24 16:59 Sodium Chloride 1,000 ml @ 0 mls/hr ONCE ONCE IV 10/07/24 12:30 10/07/24 12:31 DC 10/07/24 13:34 Vital Signs Date Time Temp Pulse Resp B/P (MAP) Pulse Ox O2 Delivery O2 Flow Rate FiO2 10/07/24 16:53 98.2 92 16 101/67 100 Room Air* 0 21 10/07/24 12:05 99.0 119 16 164/81 99 Room Air* 0 21 10/07/24 11:59 99.0 119 16 164/81 99 Room Air 0 [employer], SPOKE WITH , HE SAID BECAUSE OF PATIENT HAVING A MORE THAN3 G DROP IN HEMOGLOBIN SINCE HIS LAST VISIT AND ACUTE CYSTITIS WITH HEMATURIA PATIENT NEEDS TO BE ADMITTED TO A HIGHER LEVEL OF CARE WHERE HE CAN HAVE UROLOGY CONSULTATION. SPOKE WITH A JESSICA RN ROLLER PRINTER AND MADE HER AWARE OF THE NEED FOR TRANSFER TO A HIGHER LEVEL OF CARE. 1740/SPOKE WITH RENEE AND AT [facility]. REVIEWED LABS AND HE DOES NOT MEET CRITERIA FOR TRANSFER AT THIS TIME AGREED THAT HE COULD BE DISCHARGED HOME WITH ANTIBIOTICS AND HE COULD FOLLOW UP WITH HIS PRIMARY CARE DOCTOR. SPOKE WITH HIS AT BEDSIDE AND SHE AGREED WITH THE PLAN AND SAID THAT THEY COULD FOLLOW UP WITH THEIR UROLOGIST, AT [facility] IN THE NEXT 1-2 DAYS HEART Score Response (Comments) Value History: Low suspicion (0) 0 Age: > 65yrs (+2) 2 Risk Factors: 1-2 risk factors (+1) 1 Initial Troponin: Normal limit (0) 0 Total 3 Medical Decision Making MDM MDM: Differential diagnosis: Anemia/sepsis/UTI/cystitis/pneumonia/bronchitis/electrolyte imbalance/dehydration/AMI Rationale: Tests considered and ordered secondary to shared decision making include: labs, ECG and radiology Previous outside records reviewed: Old ER visits. Reviewed Risk of complication and/or morbidity or mortality of patient management: [id number] Medications-Per medication reconciliation see nurse's notes Need for hospitalization: Patient does meet criteria for hospitalization. Patient will need to be admitted for rehydration/addressing complex UTI Need for emergency major/minor surgery: No There are no social concerns with this patient. Prescription drug management Prescriptions will include symptomatic care Patient's prior external medical records from other ER visits were reviewed by me as indicated. Prior testing and results from previous visits were reviewed. Prior tests were taken into account with medical decision making and resource utilization, independent historian/historians were used to obtain complete medical history. I independently interpreted the test that were performed, results were reviewed by me and considered findings on radiology if ordered. Medical management and examination interpretation discussions were had by me with other qualified healthcare professionals as indicated for the patient's care. Critical Care Note Comment(s) 2020/RECEIVED CALL THIS AFTERNOON THAT PATIENT HAD GRAM-POSITIVE COCCI IN CLUSTERS IN BLOOD CULTURES. ONEYDA MARKHAM SPOKE TO AT THE HOME PHONE NUMBER IN [place] AND MADE HER AWARE OF THESE FINDINGS. SHE TOLD HIM THAT HE WAS STILL TAKING MEDICATIONS THAT HAD BEEN PRESCRIBED FOR HIM HERE AND THE CURRENTLY HE WAS OKAY , SHE WAS STRONGLY ENCOURAGED TO RETURNING BACK TO THE HOSPITAL SOON POSSIBLE DUE TO BACTEREMIA. SHE SAID SHE AGREED. DX & DISP Disposition: Discharge Decision to Admit Time: 15:50 Departure Impression: Primary Impression: Acute cystitis with hematuria Additional Impressions: Anemia, Hyponatremia, Stage 2 chronic kidney disease, Hyperglycemia, Prostate cancer Condition: Stable Scripts Amoxicillin/Potassium Clav (Amox Tr-K Clv 875-125 mg Tab) 875 Mg-125 Mg Tablet 1 EACH PO BID for 7 Days, #14 TAB 0 Refills Prov: ANIA MCKEE NP 10/07/24 Additional Instructions: FOLLOW-UP WITH PRIMARY CARE PROVIDER IN 1 TO 2 DAYS. TAKE MEDICATIONS DIRECTED HERE IN THE EMERGENCY ROOM. OKAY TO CONTINUE HOME MEDICATIONS UNLESS OTHERWISE DISCUSSED DURING YOUR VISIT IN THE EMERGENCY ROOM TODAY. RETURN TO YOUR NEAREST EMERGENCY ROOM IF SYMPTOMS WORSEN OR IF THERE IS NO IMPROVEMENT. CALL 911 IF YOU NEED IMMEDIATE ASSISTANCE. TAKE TYLENOL OR MOTRIN [id number] NEEDED AND IF NO CONTRAINDICATIONS ARE PRESENT. INCREASE ORAL HYDRATION. A WOUND CULTURE OR URINE CULTURE WAS ORDERED HERE IN THE EMERGENCY ROOM DEPARTMENT PLEASE FOLLOW-UP WITH PRIMARY CARE PROVIDER AND ADVISE THEM TO GET REPEAT PORTS FROM OUR FACILITY. IF YOU HAD ANY ALEM WRAP/SPLINTS THAT WERE APPLIED HERE, PLEASE DO NOT REMOVE THEM UNTIL YOU SEE YOUR PRIMARY CARE OR SPECIALTY. TAKE ANTIBIOTICS DIRECTED UNTIL GONE. , INCREASE YOUR WATER INTAKE. , SEE YOUR UROLOGIST IN THE NEXT ONE TWO DAYS FOR FOLLOW UP AND MANAGEMENT Referrals: BAIRON COLLAZO MD (PCP) Time of Disposition: 15:50 I have reviewed the case, and I agree with, Diagnosis and Plan ANIA MCKEE NP Oct 07, 2024 12:06
[2024-10-07 12:38] LABS: BASOPHILS # (AUTO) 0.03 K/uL (0.00-0.20); BASOPHILS % (AUTO) 0.4 % (0.0-5.0); EOSINOPHILS # (AUTO) 0.01 K/uL (0.00-0.70); EOSINOPHILS % (AUTO) 0.1 % (0.0-8.0); HEMATOCRIT 24.9 % (42-54); IMMATURE GRANULOCYTE ABSOLUTE 0.12 K/uL (0-1); LYMPHOCYTES % (AUTO) 12.6 % (21.0-51.0); MEAN CORPUSCULAR HEMOGLOBIN 24.7 pg (27.0-33.0); MEAN CORPUSCULAR HGB CONC 31.3 g/dL (32.0-36.0); MEAN CORPUSCULAR VOLUME 78.8 fL (79-99); MONOCYTES % (AUTO) 11.9 % (3.0-13.0); NEUTROPHILS # (AUTO) 6.1 K/uL (1.8-7.7); NEUTROPHILS % (AUTO) 73.5 % (40.0-77.0); NUCLEATED RED BLOOD CELLS 0.2 % (0.0-0.19); PLATELET COUNT (AUTO) 275 K/uL (130-400); RED BLOOD CELL COUNT(AUTO) 3.16 MIL/uL (4.50-6.20); RED CELL DISTRIBUTION WIDTH 18.2 % (11.0-15.5); WHITE BLOOD COUNT (AUTO) 8.3 K/uL (4.8-10.8)
[2024-10-07 12:47] LABS: CREATININE 1.2 mg/dL (0.5-1.3); POTASSIUM 4.4 mmol/L (3.5-5.1)
[2024-10-07] MEDS: 0.9%NACL 1000ML 1,000 ML IV ONE (13:34)
--- NOTE | 2024-10-07 13:42 | HMCIMG ---
INDICATION: SHORTNESS A BREATH TECHNIQUE: CHEST 1VW COMPARISON: 04/20/2024 FINDINGS/IMPRESSION: Prominent bilateral interstitial markings which may represent bronchitis or vascular congestion in the proper clinical setting. Cardiac silhouette is within normal limits. Mild degenerative changes of the spine. Osseous metastatic disease again noted.
[2024-10-07 14:02] LABS: ADD UA MICROSCOPIC YES; APPEARANCE,URINE CLOUDY (CLEAR); BILIRUBIN,URINE NEGATIVE (NEGATIVE); COLOR,URINE LIGHT-ORANGE (YELLOW); GLUCOSE, URINE (UA) NEGATIVE (NEGATIVE); KETONES,URINE NEGATIVE (NEGATIVE); LEUKOCYTE ESTERASE ,URINE 500 Leu/uL (NEGATIVE); NITRATE,URINE 1+ (NEGATIVE); OCCULT BLOOD,URINE LARGE (NEGATIVE); PROTEIN,URINE 70 mg/dL (NEGATIVE); UROBILINOGEN,URINE 0.2 mg/dL (0.2-1.0)
[2024-10-07 14:07] LABS: BACTERIA,URINE RARE /HPF (None Seen); RBC,URINE TNTC /HPF (0-1); SQUAMOUS EPITHELIAL CELL,UR RARE /HPF (0-2); WBC,URINE TNTC /HPF (0-1)
[2024-10-07 16:53] VITALS: BP 101/67; PULSE 92; RESP 16; TEMP 98.3; O2SAT 100
[2024-10-07] MEDS: CEFTRIAXONE 2GM VIAL IVPB ONE (16:59)
--- NOTE | 2024-10-07 17:08 | NUR ---
550 CC OUTPUT NEPHRO BAG SINCE ARRIVAL
--- NOTE | 2024-10-07 17:11 | NUR ---
MULTIPLE ATTEMPTS TO CALL NUMBERS ON FILE TO NOTIFY FAMILY OF TRANSFER NEEDS NO ANSWER AT THIS TIME
--- NOTE | 2024-10-07 17:18 | NUR ---
MOT TRANSFER REQUEST Notified by MD Jm, and Ronnellcharge hand nurse, about request for transfer for Urology services for diagnosis of hematuria, prostate cancer. Confirmed with patient about physician request for transfer and agreed with continuing process. Spoke with Jaim[facility] to initiate request.
[2024-10-07] MEDS ORDERED: AMOX1TAB16 PO (17:43)
--- NOTE | 2024-10-07 17:49 | NUR ---
MOT CANCELED Updated by Dr. Landin and Ronnell, charge gang weigher nurse that transfer canceled as of this time per Dr. Youssef recommendations after 1:1 physician update. Spoke with Jaimie, [facility] and updated about cancellation of transfer.
--- NOTE | 2024-10-08 08:36 | EKG ---
[facility] Test Date: 2024-10-07 Test Time: 12:31:32 Pat Name: AG YORK Department: EDH Room: Gender: M Purse Maker: [id number] : 1950 Requested By: ANIA MCKEE Order Number: [id number] Reading MD: Gilbert Alcantara Measurements Intervals Beggs Rate: 109 P: 18 NM: 132 QRS: 4 QRSD: 83 T: 5 QT: 340 QTc: 459 Interpretive Statements Sinus tachycardia Inferior infarct, old Compared to ECG 04/20/2024 05:43:24 Sinus rhythm no longer present Myocardial infarct finding still present Electronically Signed On 10-08-2024 21:12:11 FILM PROCESSING SHIFT SUPERVISOR by Gilbert Alcantara Please click the below link to view image of tracing.
--- NOTE | 2024-10-08 20:16 | NUR ---
PT CONTACTED AND TOLD TO COME BACK TO HOSPITAL OR TO GO TO [facility] FOR UROLOGY CORAL BECAUSE OF BACTERIA GROWTH, PT SAID SHE UNDERSTOOD AND WOULD GET HIM TO HOSPITAL SOON POSSIBLE PT WAS CURRENTLY FEELING FINE
== END 2024-10-07 18:12 | disposition home or self-care (01) ==
LOC: EDH 11:51
DX: N30.01 Acute cystitis with hematuria (principal); D64.9 Anemia, unspecified; E87.1 Hypo-osmolality and hyponatremia; I12.9 Hypertensive chronic kidney disease with stage 1 through stage 4 chronic kidney disease, or unspecified chronic kidney disease; N18.2 Chronic kidney disease, stage 2 (mild); E78.00 Pure hypercholesterolemia, unspecified; R73.9 Hyperglycemia, unspecified; C61 Malignant neoplasm of prostate; Z79.899 Other long term (current) drug therapy; Z85.46 Personal history of malignant neoplasm of prostate
CPT/HCPCS: 99285; 96374; 71045; 84484; 80048; 85025; 87040 ×2; 87086 ×3; 87186 ×2; 83605; 81001; 36415; 93005; J0696; 99284